=== PATIENT | female | born 1960 | race Caucasian/White ===

== ENCOUNTER 2019-06-07 09:03 | Day surgery (SDC) | payer OTHER ==
[~2019-06-07] VITALS: Ht 154.9 cm; Wt 73.5 kg
[~2019-06-07 09:03] MED LIST: ALPRAZOLAM0.25 MG PO; ALPRAZOLAM0.5 MG PO; CALCIUM CITRAT200 MG PO; CITALOPRAM HBR20 MG PO; CITALOPRAM HBR40 MG PO; GABAPENTIN100 MG PO; HYDROCODON-ACE1 EAC8 PO; HYDROMORPHONE HC4 MG PO; HYDROXYZINE HCL25 MG PO; IBUPROFEN600 MG PO; MELATONIN10 M2 PO; MIRALAX17 GM PO; MOTRIN IB200 MG PO; NICOTINE PATCH1 EAC1 TD; NORCO 5-325 TA1 EACH PO; NORCO 7.5-3251 EACH PO; OMEPRAZOLE20 M1 PO; OXYBUTYNIN CHLOR5 MG PO; OXYCODONE HCL5 MG PO; PERCOCET 5-3251 EACH PO; ROBAXIN-750750 MG PO; SENNA8.6 MG PO; SLEEP AID25 M1 PO; TRAZODONE HCL100 MG PO; VALIUM2 MG PO; VITAMIN D-32000 UNIT PO; ZOFRAN ODT4 MG PO
--- NOTE | 2019-06-07 13:43 | NUR ---
PT ALERT, ORIENTED AND SUPPORTED BY HER FAMILY. SHE IS PLEASANT, EXPLAINED HOW SHE BROKE HER LEG, AND REQUESTED PRAYER. CHIEF CLOTH FINISHING RANGE OPERATOR CAME AND WILL FOLLOW NEEDED.
--- NOTE | 2019-06-07 14:54 | NUR ---
LE 1030: PATIENT TRANSFERS HERSELF TO THE WHEELCHAIR FROM BED AND THEN TO THE BATHROOM AND BACK TO THE WHEELCHAIR. PATIENT TOLERATES THIS WELL. PATIENT IS BACK IN BED, ELEVATION IN PLACE TO LOWER EXTREMITIES. LE 1230: PATIENT TRANSFERS HERSELF TO THE WHEELCHAIR AND USES THE RESTROOM AND THEN TRANSFERS HERSELF BACK. PATIENT IS BACK IN BED AND ELEVATION IN PLACE TO LOWER EXTREMITIES. PATIENT'S FRIEND AT THE BEDSIDE. LE 1330: PATIENT TRANSFERS HERSELF TO THE WHEELCHAIR AFTER BLOCK PERFORMED. PATIENT USES THE BATHROOM AND TRANSFERS HERSELF BACK TO BED. PATIENT TOLERATES THIS WELL. ELEVATION IN PLACE TO LOWER EXTREMITIES.
--- NOTE | 2019-06-07 15:17 | NUR ---
06/07/19 1517 Ana Cristina,Faye 1508 PT ARRIVED TO PACU ON 6L VIA MASK, RESP EVEN AND UNLABORED. PT REPORTS "I AM FEELING GOOD." PT DENIES PAIN AND NAUSEA. 1512 O2 MASK REMOVED. PT UNABLE TO MOVE FEET. PT EDUCATION GIVEN ON SPINAL.
--- NOTE | 2019-06-07 15:51 | NUR ---
PT TO FLOOR VIA STRETCHER WITH RN ADEBAYO. PT AWAKE BUT COMPLETELY NUMB TO LEFT LEG. FRIEND MAGNOLIA IN ROOM. VS STABLE.
--- NOTE | 2019-06-07 16:45 | NUR ---
VS STABLE. PT SLIGHTLY MORE AWAKE BUT DENIES WANTING TO TAKE ANYTHING INCLUDING WATER RIGHT NOW. WILL WAIT FOR GABAPENTIN AND ADVANCING DIET UNTIL MORE AWAKE.
--- NOTE | 2019-06-07 18:21 | NUR ---
PT REPORTING 7/10 PAIN AND IS NOW AWAKE ENOUGH TO EAT SOMETHING. ATE JELLO AND PUDDING WO EMESIS. ORDERED DINNER. GIVEN PAIN MEDS. STARTED LOW WITH ONE TAB OF DILAUDID.
--- NOTE | 2019-06-07 19:14 | NUR ---
in bed qwatching tv, c/o 9/10 l leg pain, medicated with Ofirmev 1000mg IV and Dilaudfid 2mg po.
--- NOTE | 2019-06-07 19:51 | NUR ---
ROUNDED CHARGE. PATIENT IS RESTING IN BED. KRISS RN IN ROOM TO ADMINISTER PAIN MEDICATIONS. PATIENT DENIES ANY NEEDS. CALL LIGHT IN REACH.
--- NOTE | 2019-06-07 21:49 | NUR ---
rEPOSITIONED IN BED, UNABLE TO COMPLETE ASSESSMENT OF L LEG DUE TO PAIN PER PTS REQUESTS. L MASTECTOMY SCAR, HEALING PINK, DRESSING UNDER R BREAST. L PORTACATH PATENT, DENIES C/O ADVERSE REACTION TO ABX. LOW PAIN TOLERANCE WITH MOVEMENT. O2 1L, CPOX AT 96%, CRYOCUFF TO L LEG, SIGNIFICANT OTHER IN ROOM
--- NOTE | 2019-06-07 22:26 | NUR ---
UP TO BR, TOE TOUCH, 1PA, VOIDED LARGE AMOUNT OF URINE, BACK TO BED, CRYOCUFF IN PLACE, TOLERATED FAIR. BACK ON , NO RESP DISTRESS, FAMILY IN ROOM,
--- NOTE | 2019-06-07 23:35 | NUR ---
Awake, in bed, coop with assessment, On room air at this time, CPOX inplace, sats 96%. L leg edema+1, non pitting, giancarlo wrap, knee brace, cryocuff in place. elevated with pillows. Medicated with 2 Dilaudid po 4mg po c/o 06/13 pain L knee. Tolerating fluids well. Helps with repositioning
--- NOTE | 2019-06-08 00:32 | NUR ---
Med effective, resting, eyes closed, no resp distress, on room air. L leg Elevated with pillows good cms, 1+ edema, Jewel bandage, Knee brace and cryocuff in place. Family in room, call light and fluids at bedside
--- NOTE | 2019-06-08 02:31 | NUR ---
PATIENT IS CALLED AND REQUESTED PAIN MEDICATION. PATIENT GIVEN PRN PAIN MEDICATION PER ORDER. PATIENT RATES PAIN AT A "OVER 10" PAIN IN HER LEFT LOWER EXT. PATIENTS CRYO REFEILLED WITH ICE. PATIENT STATES "THIS PAIN IS WORSE THAN BEFORE SURGERY." PATIENT ALSO STATES "ICE MAKES IT WORSE." PATIENT EDUCATED ON THE IMPORTANCE AND BENEFIT OF THE CRYO. PATIENT AGREED TO CONTINUE TO WEAR CRYO. PATIENTS CRYO REFILLED WITH ICE. PATIENT REFUSED SCD ON RIGHT LOW EXT. PATIENT DENIES ANY FURTHER NEEDS. CALL LIGHT IN REACH.
--- NOTE | 2019-06-08 02:52 | NUR ---
DR POE NOTIFIED OF PTS GETTING NO RELIEF FROM dILAUDUD, NEW ORDERS RECEIVED FOR TORADOL IV. PT NOTIFIED
--- NOTE | 2019-06-08 03:14 | NUR ---
Medicated with Toradol 30mg IV c/o L leg pain. Leg elevated with pillows good cms, giancarlo badage on, leg brace in place, cryocuff inplace.
--- NOTE | 2019-06-08 04:43 | NUR ---
CURRENTLY RESTING, EYES CLOSED, ON ROOM AIR. PORTACHAT L CHEST PATENT. NO S/SX ADVERSE REACTION TO ANCEF ABX. LEFT LEG 1+ EDEMA. LEGS ELEVATED WITH PILLOWS, GOOD CMS. LETTY WRAP, BRACE AND CRYOCUFF IN PLACE. HAS HAD POOR PAIN TOLERANCE THIS SHIFT. MEDICATED WITH DILAUDID THIS SHIFT WITH POOR TO FAIR PAIN CONTROL. DR POE NOTIFIED VIA PHONE. NEW ORDERS OBTAINED FOR TORADOL 30MG IV Q6H WHICH WAS GIVEN AND PT STATED FAIR TO GOOD PAIN CONTROL. HAS BEEN TOLERATING FLUIDS AND DIET WELL. CALL LIGHT AND FLUIDS AT BEDSIDE. HELPS WITH TURNING, FAMILY INROOM
--- NOTE | 2019-06-08 06:28 | NUR ---
Up to br, voided qs clear yellow urine. C/o L leg pain 6/10, medicated with Dilaudid 4mg po, L leg giancarlo wrap, brace and cryocuff in place, elevated with pillows. Uses walker and 1PA. Tolerated IV abx , no c/o adverse reaction. Tolerating fluids well, no n/v. Call light at bedside, family rooming in
--- NOTE | 2019-06-08 07:25 | NUR ---
PT RESTING IN SEMIFOWLERS POSITION IN BED ALERT AND ORIENTED STATES PAIN LEVEL IS TOLERABLE AT THIS TIME. CALL LIGHT AND H2O IN REACH. BEDSIDE REPORT RECEIVED FROM KRISS MACHADO. PT DENIES NEEDS/CONCERNS.
[2019-06-08] MEDS ORDERED: ASPIRIN325 MG PO (07:44)
[2019-06-08] MEDS ORDERED: GABAPENTIN300 MG PO (07:44)
[2019-06-08] MEDS ORDERED: HYDROMORPHONE HC4 MG PO (07:44)
--- NOTE | 2019-06-08 08:07 | NUR ---
IN TO ASSESS PT. AM MEDS ADMINISTERED AND AM ASSESSMENT COMPLETED. CALL LIGHT AND H2O IN REACH. PT STATES "I WANT TO GO OUT TO MY [facility]ICKUP AND GET SOME FRESH AIR, I'LL LEAVE AGAINST MEDICAL ADVICE IF THAT'S WHAT IT TAKES TO GET OUTSIDE AND GET SOME FRESH AIR". DR POE CALLED AND GAVE VERBAL ORDER THAT PT MAY GO OUTSIDE TO HER TRUCK IN ONLY, NO WALKING. PT NOTIFIED AND SENSOR SPECIALIST TO ASSIST PT TO TRUCK IN .
--- NOTE | 2019-06-08 08:23 | NUR ---
PT AGITATED WHEN TOLD THAT DRAFTER CIVIL ENGINEERING WOULD NEED TO ACCOMPANY HER IN WC WO HER TRUCK. PT BEGANS CUSSING, GETS UP AND STARTS HOBBLING AROUND IN ROOM ON SX LEG PER DRAFTER CIVIL ENGINEERING REPORT. IN TO SEE PATIENT, PT STATES I JUST WANT TO GO OUT THERE AND SMOKE A CIGARETTE. PT EDUCATED ON NO SMOKING POLICY HERE AT HOSPITAL AND WAS INFORMED THAT IF SHE LEAVES TO SMOKE THAT THIS WILL BE CONSIDERED LEAVING AMA. DR POE WAS UPDATED ON SITUATION, NO NEW ORDERS. PT DENIES NEED FOR NICOTINE GUM OR PATCH "NO IT'S NOT THAT BAD". PT STATES SHE WOULD LIKE TO GO OUT TO [facility] AND AGREES TO NOT SMOKE ON HOSPITAL GROUNDS. PT STATES "I'LL JUST HOLD OFF UNTIL I'M DISCHARGED LATER TODAY.
[2019-06-08] MEDS ORDERED: MOBIC15 MG PO (10:18)
[2019-06-08] MEDS ORDERED: GENTAMICIN SULF15 G2 TOP (10:21)
--- NOTE | 2019-06-08 10:21 | NUR ---
MED REC COMPLETE
--- NOTE | 2019-06-08 11:00 | NUR ---
MULTIPLE STAFF MEMBERS WERE STATING THE PT WAS WANTING TO BE A TRANSITIONAL CARE SWING BED AT [facility] AND COULD I TALK TO THE PT DR MARIAN ANDREWS DOWN THERE AND SEE IF WE COULD MAKE IT SO. RECIEVED A PHONE CALL FROM [facility] DR FONSECA NURSE REGARDING THIS ISSUE ALSO. SHE WANTED ME TO CALL TK [place] AT [facility] AND SEE WHAT SHE SAID. I TOLD HER I WOULD TRY TO CALL HER. CALLED HER # LEFT A MESSAGE [phone]. TALKED WITH THE PT AND EXPLAINED THAT I AM NOT SURE IF SHE WILL QUALIFY FOR A SWING BED STATUS, SHE STATES YEA THAT SHE REMEMBERED THAT FROM THE LAST TIME (APPROX 2 YEARS AGO) WHERE SHE WAS INFORMED THAT SHE WOULD HAVE TO HAVE 3 MIDNIGHT STAY, SHE STATES THAT6 SHE WILL JUST GO STAY WITH HER BOYFRIEND AND HIS PARENTS.
[2019-06-08] MEDS ORDERED: PROBIOTIC1 EAC1 PO (11:04)
--- NOTE | 2019-06-08 11:05 | NUR ---
PT SITTING UP IN BED, STATES PAIN IS TOLERABLE. PT EXPRESSED HER CONCERN THAT SHE WILL BE UNABLE TO CARE FOR HERSELF WHILE AT HOME. PT EXPRESSED THAT SHE WOULD LIKE TO BE ADMITTED TO A SWING BED PROGRAM PREFERABLY IN [facility] THAT IS WHERE HER AND HER FAMILY LIVE. PT DENIES FURTHER NEEDS/CONCERNS.
--- NOTE | 2019-06-08 12:44 | NUR ---
PT WAS SITTING IN CHAIR, WITH FAMILY NEXT TO HER. LUNCH HAD JUST BEEN DELIVERED, AND SHE WAS READY. SHE IS TO BE DC'D THIS PM AND MENTIONED THAT SHE HOPES WITH BE TO [facility] ON SWING BED PROG. PT DID NOT SLEEP WELL LAST NIGHT. EXTENDED A BLESSING, WILL FOLLOW NEEDED
--- NOTE | 2019-06-08 13:20 | NUR ---
CALLED AND LEFT ANOTHER MESSAGE FOR TK AT [facility] [phone]
--- NOTE | 2019-06-08 14:12 | NUR ---
PT RESTING SUPINE IN BED ALERT AND ORIENTED X4. PT STATES PAIN IS TOELRABLE AT 3/10 STATES PAIN LEVEL IS TOLERABLE WT THIS TIME. ASSESSMENT COMPLETED. CALL LIGHT AND H2O IN REACH. NO NEEDS/CONCERNS VOICED.
--- NOTE | 2019-06-08 14:15 | NUR ---
LEFT ANOTHER MESSAGE FOR TK TO RETURN MY CALL.
--- NOTE | 2019-06-08 14:24 | NUR ---
PATIENT'S RIGHT PORT FLUSHED WITH 20ML OF NORMAL SALINE, THEN HEP LOCKED.
--- NOTE | 2019-06-08 14:55 | NUR ---
LEFT 3RD MESSAGE AND ONE FOR THE NURSE AT THE PT PCP OFFICE
--- NOTE | 2019-06-08 15:45 | NUR ---
BEFORE PATIENT WAS DISCHARGED SHE DID HER OWN PARTIAL BATH. CHANGED BED LINENS.
--- NOTE | 2019-06-09 12:08 | OR ---
[facility] [address] [place] [address] Signed DATE OF OPERATION: 06/07/2019 SURGEON: Diego Hernandez MD PREOPERATIVE DIAGNOSIS: Schatzker V tibial plateau fracture, left. POSTOPERATIVE DIAGNOSIS: Schatzker V tibial plateau fracture, left. PROCEDURE PERFORMED: Open reduction and internal fixation of bicondylar plateau fracture, left. ASSISTANTS: 1. Brittney Dey PA-C. 2. MURTAZA Carson. Brittney was present and critical for all portions of procedure. ANESTHESIA: Spinal. BLOOD LOSS: Minimal. TOURNIQUET TIME: 44 minutes. IMPLANTS: 6 hole 4.5 mm proximal tibia plate from [employer]. BRIEF HISTORY: Angelika is a 59-year-old female who suffered a ground level fall and injured her left leg. Initial radiographs showed a fairly minimal split fracture. However, CT confirmed bicondylar extension of the fracture. Risks and benefits of operative treatment were discussed with her and she elected to proceed. DESCRIPTION OF PROCEDURE: Once consent was obtained, she was taken to the operating room. After adequate anesthesia, she was placed on operating room table. All downside pressure points were Electronically Signed By: DIEGO HERNANDEZ MD 06/09/19 1208 PATIENT NAME: ANGELIKA SALGEURO OPERATIVE REPORT DATE OF : 62 REPORT #: [id number] PHYSICIAN: DIEGO HERNANDEZ MD PCP: MAYE FONSECA MD REPORT IS CONFIDENTIAL AND NOT TO BE RELEASED WITHOUT AUTHORIZATION [facility] [address] [facility] [place], [place] [address] Signed well padded. The left leg was then prepped and draped in a standard sterile fashion to well-padded proximal thigh tourniquet. The leg was exsanguinated and tourniquet inflated to 275 mmHg. A lateral curved incision was made through skin and subcutaneous tissue and carried down to the fascia. The fascia was split along the tibial ridge anteriorly and taken up to just below the joint line. It was then taken posteriorly and the muscles of anterior compartment were elevated. The arthrotomy was then performed under the meniscus and the hematoma was removed. Using a lighted Perez sucker and Redford elevator, we were able to visualize fracture lines in the lateral compartment and these were compressed and reduced. The plate was then fashioned to fit the lateral side and held with 2-0 pin. This was checked using image intensifier and found to be satisfactorily placed. The posterior screw in the plate was then placed after placing a guide pin and a nonlocking screw was used to compress the fracture, which did compress quite nicely. The remaining two screws in the proximal end of the plate were placed using locking screws. The oblique screw was placed using a locking screw. The distal three screws were standard 4.5 screws. Final radiographs showed excellent reduction, plate placement and screw lengths. The wound was then copiously irrigated with Irrisept and the fascia was closed using a combination of #1 Vicryl and 0 Stratafix, subcutaneous tissue with 2-0 Stratafix, and franca. The wound was dressed with Allevyn mesh and ABDs as well as an Jewel wrap. She was placed back into a fracture brace, taken to recovery room in satisfactory condition. All sponge, needle, and instrument counts were correct. Diego Hernandez MD BA/MODL /[id number] Copies: ~ Electronically Signed By: DIEGO HERNANDEZ MD 06/09/19 1208 PATIENT NAME: ANGELIKA SALGUERO OPERATIVE REPORT DATE OF : 62 REPORT #: [id number] PHYSICIAN: DIEGO HERNANDEZ MD PCP: MAYE FONSECA MD REPORT IS CONFIDENTIAL AND NOT TO BE RELEASED WITHOUT AUTHORIZATION
== END 2019-06-08 15:15 | disposition home or self-care (01) ==
LOC: OPS 09:03 → DS 12:45 → OPS 12:45 → MS 15:41 → OPS 15:41 → MS 15:42 → OPS 06-08 15:15 → MS 06-08 15:15
PROVIDERS: Specialist
PROC: 0QSH04Z Reposition Left Tibia with Internal Fixation Device, Open Approach (ICD-10-PCS; principal; 2019-06-07 12:30)
DX: S82.142A Displaced bicondylar fracture of left tibia, initial encounter for closed fracture (principal); F32.9 Major depressive disorder, single episode, unspecified; F41.0 Panic disorder [episodic paroxysmal anxiety]; E78.00 Pure hypercholesterolemia, unspecified; F17.210 Nicotine dependence, cigarettes, uncomplicated; K21.9 Gastro-esophageal reflux disease without esophagitis; M19.90 Unspecified osteoarthritis, unspecified site; Z88.5 Allergy status to narcotic agent; Z88.8 Allergy status to other drugs, medicaments and biological substances; Z79.899 Other long term (current) drug therapy; Z79.1 Long term (current) use of non-steroidal anti-inflammatories (NSAID); W10.9XXA Fall (on) (from) unspecified stairs and steps, initial encounter
CPT/HCPCS: 01392; 64447; 73560; 76942; 97110; 97161; C1713; J0131; J0690; J1885; J2250; J2704; J2795; J3010; J3370; J7060; J7120

== ENCOUNTER 2020-07-31 05:50 | Day surgery (SDC) | payer MEDICARE, OTHER ==
[~2020-07-31] VITALS: Ht 152.4 cm; Wt 73.6 kg
[~2020-07-31 05:50] MED LIST changes: +ASPIRIN325 MG PO; +GABAPENTIN300 MG PO; +GENTAMICIN SULF15 G2 TOP; +MOBIC15 MG PO; +PROBIOTIC1 EAC1 PO
[2020-07-31] MEDS ORDERED: NORCO 10-325 T1 EACH PO ×2 (06:05→07:43)
--- NOTE | 2020-07-31 07:46 | NUR ---
07/31/20 0746 Sheets,Faye 0739 PT ARRIVED TO PACU ON RA, RESP RATE 8-10 AND OR[address] IN PLACE. VSS. 0744 O2 SAT 90%, 6L VIA MASK. PLACED PT REMAINS NONAROUSABLE. 0746 O2 SAT 100%.
--- NOTE | 2020-07-31 09:25 | NUR ---
CONNECTED WITH PTS' SPOUSE. HE SEEMS COMFORTABLE-HAS DECIDED TO REMAIN IN RM UNTIL PT RETURNS FROM PACU. GAVE ENCOURAGEMENT, WILL FOLLOW
--- NOTE | 2020-07-31 09:34 | NUR ---
PT RESTING IN LOCKED AND LOWERED BED, SIDE RAILS UP, CALL LIGHT WITHIN REACH. FAMILY AT THE BEDSIDE. MORE SODA AND WARM BLANKET PROVIDED. NO FURTHER REQUESTS AT THIS TIME.
--- NOTE | 2020-07-31 09:41 | NUR ---
PT UP TO RESTROOM. AMBULATES AND VOIDS WITH NO COMPLICATIONS.
--- NOTE | 2020-08-01 07:33 | OR ---
[facility] [address] [facility] [place], [place] [address] Signed DATE OF OPERATION: 07/31/2020 SURGEON: Diego Hernandez MD PREOPERATIVE DIAGNOSIS: Right distal radius fracture displaced. POSTOPERATIVE DIAGNOSIS: Right distal radius fracture displaced. PROCEDURE PERFORMED: Closed reduction and percutaneous pinning, right distal radius. PERSONAL INJURY ATTORNEY: RAFAEL Dhaliwal. Brittney was present and critical for all portions of procedure. ANESTHESIA: General with block. ESTIMATED BLOOD LOSS: None. IMPLANTS: Four 1.6 mm K-wires. BRIEF HISTORY: Angelika is a 60-year-old female, undergoing treatment for breast cancer, suffered a ground level fall. She has had an axillary node dissection on that side and had extensive swelling. Initially, she was consented for open reduction and internal fixation, however, when we got her into the operating room, she had such extensive edema in the forearm and wrist that I felt it was unsafe to make an incision and proceed with deep dissection through that soft tissue. I suspect that we would have trouble healing. We then performed a closed reduction, which actually worked out pretty well. We were able to get the distal radius back into position, and there was no comminution of the articular surface. I felt that we should go ahead and proceed with the closed reduction percutaneous pinning rather than making a rather large incision in that extremely edematous forearm. The fracture was held in a reduced position and two 1.6 K-wires were introduced percutaneously at the radial styloid crossing the fracture and engaging the body of the radius proximally. Two more placed dorsally in a similar fashion. All four Electronically Signed By: DIEGO HERNANDEZ MD 08/01/20 0733 PATIENT NAME: ANGELIKA SALGUERO OPERATIVE REPORT DATE OF : 62 REPORT #: [id number] PHYSICIAN: DIEGO HERNANDEZ MD PCP: MAYE FONSECA MD REPORT IS CONFIDENTIAL AND NOT TO BE RELEASED WITHOUT AUTHORIZATION [facility] [address] [place], [place] [address] Signed pins were cut below the skin, again secondary to the extensive edema and the high likelihood of infection. The wounds were dressed with active code, cast padding, and a postoperative splint. She tolerated the procedure well and was taken to the recovery room in satisfactory condition. All sponge, needle, and instrument counts were correct. Diego Hernandez MD BA/MODL /[id number] Copies: ~ Electronically Signed By: DIEGO HERNANDEZ MD 08/01/20 0733 PATIENT NAME: ANGELIKA SALGUERO OPERATIVE REPORT DATE OF : 62 REPORT #: [id number] PHYSICIAN: DIEGO HERNANDEZ MD PCP: MAYE FONSECA MD REPORT IS CONFIDENTIAL AND NOT TO BE RELEASED WITHOUT AUTHORIZATION
== END 2020-07-31 10:25 | disposition home or self-care (01) ==
LOC: DS 05:50
PROVIDERS: ATTEND Specialist
PROC: 0PSH34Z Reposition Right Radius with Internal Fixation Device, Percutaneous Approach (ICD-10-PCS; principal; 2020-07-31 06:45)
DX: S52.531A Colles' fracture of right radius, initial encounter for closed fracture (principal); S52.614A Nondisplaced fracture of right ulna styloid process, initial encounter for closed fracture; I10 Essential (primary) hypertension; G43.909 Migraine, unspecified, not intractable, without status migrainosus; F41.9 Anxiety disorder, unspecified; F32.9 Major depressive disorder, single episode, unspecified; K21.9 Gastro-esophageal reflux disease without esophagitis; F17.210 Nicotine dependence, cigarettes, uncomplicated; Z79.899 Other long term (current) drug therapy; Z88.5 Allergy status to narcotic agent; Z91.048 Other nonmedicinal substance allergy status; W18.30XA Fall on same level, unspecified, initial encounter
CPT/HCPCS: 51700; 64417; 73100; 76942; J1100; J1885; J2001; J2250; J2405; J2704; J2795; J3010; J3370; J7060; J7121

== ENCOUNTER 2020-09-02 10:17 | Day surgery (SDC) | payer MEDICARE, OTHER ==
[~2020-09-02] VITALS: Ht 152.4 cm; Wt 74.0 kg
[~2020-09-02 10:17] MED LIST changes: +NORCO 10-325 T1 EACH PO
[2020-09-02] MEDS ORDERED: MOBIC15 MG PO (10:46)
[2020-09-02] MEDS ORDERED: HYDROCODON-ACE1 EA11 PO (13:47)
[2020-09-02] MEDS ORDERED: BACTRIM DS TAB1 EACH PO (13:48)
--- NOTE | 2020-09-02 14:04 | NUR ---
09/02/20 1404 Ana Cristina,Faye 1339 PT ARRIVED TO PACU ON 6L VIA MASK, RESP EVEN AND UNLABORED. VSS. 1345 PT WAKES TO TACTILE STIMULI AND ORAL AIRWAY REMOVED. PT REPORTS PAIN 06/13 AND MOANING. PT REORIENTED TO PAIN. HOB INCREASED. 1353 PAIN MEDICATION GIVEN PER EMAR. PT TALKING TO RN. 1358 PT SIPPING WATER, AND REPORTS PAIN IS A LITTLE BETTER, 05/13. 1401 PAIN MEDICATION GIVEN, PT TALKING TO RN AND REPORTS BURNING PAIN.
--- NOTE | 2020-09-02 16:54 | NUR ---
PT CALLED AND NOTIFIED THAT HER DRESSING NEEDS TO REMAIN IN PLACE UNTIL HER FOLLOW UP WITH DR. POE PER DR. POE. PT STATES UNDERSTANDING AND THANKFUL FOR THE CALL.
--- NOTE | 2020-09-03 07:30 | OR ---
[facility] [address] [place], [place] [address] Signed DATE OF OPERATION: 09/02/2020 SURGEON: Diego Hernandez MD PREOPERATIVE DIAGNOSIS: Painful infected pins, right wrist. POSTOPERATIVE DIAGNOSIS: Painful infected pins, right wrist. PROCEDURE PERFORMED: Pin removal deep right wrist. HOSPITAL PHARMACY TECHNICIAN: Brittney Dey PA-C. ANESTHESIA: MAC. BLOOD LOSS: 75 mL. BRIEF HISTORY: Angelika is a 60-year-old female, who had a percutaneous pinning of her distal wrist with uneventful healing of the fracture. However, she presented with maceration over the pins and drainage with a little bit of cellulitis. Risks and benefits of operative treatment were discussed with her and she elected to proceed. DESCRIPTION OF PROCEDURE: Once consent was obtained, she was taken to the operating room. After adequate anesthesia, she was placed on the day surgery table and the C-arm was brought in. The arm was prepped and draped in a standard sterile fashion. The pins were located using the C-arm. There were three small skin ulcerations radially that were covering a larger ulceration underneath. The distal skin bridge was divided and the three pins were removed without difficulty. Final radiographs showed the complete pin removal. The wound was copiously debrided and irrigated and packed with iodoform gauze and ABD and a gauze wrap. She tolerated the procedure well. All sponge, needle, and instrument counts were correct. Electronically Signed By: DIEGO HERNANDEZ MD 09/03/20 0730 PATIENT NAME: ANGELIKA SALGUERO OPERATIVE REPORT DATE OF : 62 REPORT #: [id number] PHYSICIAN: DIEGO HERNANDEZ MD PCP: MAYE FONSECA MD REPORT IS CONFIDENTIAL AND NOT TO BE RELEASED WITHOUT AUTHORIZATION [address] [place], [place] [address] Signed Diego Hernandez MD /ASUNCION /[id number] Copies: ~ Electronically Signed By: DIEGO HERNANDEZ MD 09/03/20 0730 PATIENT NAME: ANGELIKA SALGUERO OPERATIVE REPORT DATE OF : 62 REPORT #: [id number] PHYSICIAN: DIEGO HERNANDEZ MD PCP: MAYE FONSECA MD REPORT IS CONFIDENTIAL AND NOT TO BE RELEASED WITHOUT AUTHORIZATION
== END 2020-09-02 15:00 | disposition home or self-care (01) ==
LOC: OPS 10:17 → DS 10:21 → OPS 12:00 → DS 12:00 → OPS 15:00
PROVIDERS: ATTEND Specialist
PROC: 0PP Upper Bones, Removal (ICD-10-PCS; principal; 2020-09-02 12:00)
DX: T84.612A Infection and inflammatory reaction due to internal fixation device of right radius, initial encounter (principal); T84.84XA Pain due to internal orthopedic prosthetic devices, implants and grafts, initial encounter; L03.113 Cellulitis of right upper limb; S52.611A Displaced fracture of right ulna styloid process, initial encounter for closed fracture; S52.531A Colles' fracture of right radius, initial encounter for closed fracture; I10 Essential (primary) hypertension; K21.9 Gastro-esophageal reflux disease without esophagitis; M19.90 Unspecified osteoarthritis, unspecified site; G43.909 Migraine, unspecified, not intractable, without status migrainosus; F32.9 Major depressive disorder, single episode, unspecified; K59.00 Constipation, unspecified; F17.210 Nicotine dependence, cigarettes, uncomplicated; W19.XXXA Unspecified fall, initial encounter; Y83.8 Other surgical procedures as the cause of abnormal reaction of the patient, or of later complication, without mention of misadventure at the time of the procedure; Z88.1 Allergy status to other antibiotic agents; Z88.5 Allergy status to narcotic agent; Z88.8 Allergy status to other drugs, medicaments and biological substances; Z79.1 Long term (current) use of non-steroidal anti-inflammatories (NSAID); Z79.899 Other long term (current) drug therapy; Z91.048 Other nonmedicinal substance allergy status; Z91.040 Latex allergy status
CPT/HCPCS: 01830; 73100; A9270; J0690; J2704; J3010; J7121